=== PATIENT | female | born 1955 | race Caucasian/White ===

== ENCOUNTER → 2017-02-17 | Outpatient (CLI) | payer OTHER ==
[~2017-02-17] MED LIST: BENADRYL50 MG PO; CEPHALEXIN500 M1 PO; FLEXERIL10 MG PO; IBU-4400 MG PO; LEVOTHYROXINE0.05 MG PO; LORTAB 5/500 501 TAB; LORTAB 5/500 501 TAB PO; NO HOME MEDICATIONS; NORCO 325 MG-51 TAB PO; PERCOCET 325 MG1 TA2 PO; PREDNISONE20 MG PO; SYNTHROID0.1 MG/TAB PO; TOPROL XL 50MG50 MG PO; ULTRAM 50MG TAB50 MG PO; ULTRAM50 MG PO; crutches
== END ==
LOC: COL.RAD 12:53
DX: M46.1 Sacroiliitis, not elsewhere classified (principal); Z53.09 Procedure and treatment not carried out because of other contraindication

== ENCOUNTER 2017-02-24 10:06 | Outpatient (RCR) | payer MEDICARE | END 2017-05-25 | disposition home or self-care (01) | LOC: MKS.ESL.PT | DX: M53.3 Sacrococcygeal disorders, not elsewhere classified (principal) | CPT/HCPCS: G8978-GP; G8979-GP ==

== ENCOUNTER → 2017-10-20 | Outpatient (CLI) | payer MEDICARE, OTHER | LOC: COL.LAB 13:41 | DX: Z01.812 Encounter for preprocedural laboratory examination (principal); M16.12 Unilateral primary osteoarthritis, left hip ==

== ENCOUNTER 2018-05-22 17:00 | Inpatient (IN) | payer MEDICARE ==
[~2018-05-22] VITALS: Ht 172.7 cm; Wt 125.2 kg
[~2018-05-22 17:00] MED LIST changes: +BACTRIM DS 8001 TAB PO; +HCTZ 25MG TAB25 MG PO; +INDERAL 10MG10 MG PO; +NAPROSYN500 MG PO; +SYNTHROID0.05 MG/TA PO; +VITAMIND3 5000 PO; +ZYRTEC 10MG10 MG PO
[2018-05-22 18:33] LABS: BASO # 0.1 (0.0-0.2); BASO % 0.4 % (0.0-2.0); EOS # 0.5 (0.0-0.7); EOS % 4.3 % (0-4.0); GRAN # 8.5 (1.4-6.5); GRAN % 73.7 % (42.2-75.2); HEMATOCRIT 39.2 % (37.0-47.0); HEMOGLOBIN 12.1 g/dl (12.5-16.0); LYMPH # 1.2 (1.2-3.4); LYMPH % 10.3 % (20.0-51.0); MEAN CELL VOLUME 92 fl (80.0-100.0); MEAN CORPUSCULAR HEMOGLOBIN 28 pg (27.0-31.0); MEAN CORPUSCULAR HGB CONC 31 g/dl (33.0-37.0); PLATELET COUNT 449 K/mm3 (130-400); RED BLOOD COUNT 4.27 M/mm3 (4.10-5.30); REDCELL DISTRIBUTION WIDTH-CV 14.6 % (11.5-14.5)
[2018-05-22 18:43] LABS: ALBUMIN 3.4 gm/dL (3.5-5.0); BILIRUBIN,TOTAL 0.4 mg/dL (0.0-1.0); CALCIUM 9.1 mg/dL (8.4-10.2); CREATININE, serum 1.16 mg/dL (0.52-1.25); POTASSIUM 4.8 mmol/L (3.4-5.0); TOTAL PROTEIN 7.7 gm/dL (6.4-8.2)
[2018-05-22 18:54] LABS: C-REACTIVE PROTEIN 16.1 mg/dL (0.0-0.9)
[2018-05-22 19:02] LABS: ERYTHROCYTE SEDIMENTATION RATE 115 mm/hr (0-30)
[2018-05-22 22:34] VITALS: BP 126/76; PULSE 81; TEMP 98.2
[2018-05-23] VITALS (12 sets, daily range): BP systolic 107–138; BP diastolic 44–67; PULSE 71–91; TEMP 97–98.5
[2018-05-23 05:55] LABS: HEMOGLOBIN 10.7 g/dl (12.5-16.0); MEAN CELL VOLUME 91 fl (80.0-100.0); MEAN CORPUSCULAR HEMOGLOBIN 28 pg (27.0-31.0); MEAN CORPUSCULAR HGB CONC 31 g/dl (33.0-37.0); MEAN PLATELET VOLUME 9.7 fl (7.4-10.4); PLATELET COUNT 419 K/mm3 (130-400); REDCELL DISTRIBUTION WIDTH-CV 14.6 % (11.5-14.5)
[2018-05-23 05:56] LABS: HEMATOCRIT 34.6 % (37.0-47.0)
[2018-05-23 06:09] LABS: CALCIUM 8.5 mg/dL (8.4-10.2); CREATININE, serum 1.05 mg/dL (0.52-1.25); POTASSIUM 4.3 mmol/L (3.4-5.0)
[2018-05-23 06:28] LABS: BAND 14 % (0-10); BASOPHIL 1 % (0-2); EOSINOPHIL 5 % (0-4); LYMPHOCYTE 23 % (20.0-51.0); NEUTROPHILS 53 % (42.0-75.2)
[2018-05-23 06:30] LABS: ANISOCYTOSIS 1+; PLATELET ESTIMATE INCREASED (NORMAL)
[2018-05-24] VITALS (7 sets, daily range): BP systolic 105–137; BP diastolic 49–62; PULSE 60–75; TEMP 98.1–98.7
[2018-05-24 06:55] LABS: HEMOGLOBIN 10.5 g/dl (12.5-16.0)
[2018-05-24 07:06] LABS: HEMATOCRIT 33.7 % (37.0-47.0)
[2018-05-24 09:44] LABS: HEMOGLOBIN 10.4 g/dl (12.5-16.0); MEAN CELL VOLUME 94 fl (80.0-100.0); MEAN CORPUSCULAR HEMOGLOBIN 29 pg (27.0-31.0); MEAN CORPUSCULAR HGB CONC 31 g/dl (33.0-37.0); PLATELET COUNT 513 K/mm3 (130-400); RED BLOOD COUNT 3.64 M/mm3 (4.10-5.30); REDCELL DISTRIBUTION WIDTH-CV 14.4 % (11.5-14.5)
[2018-05-24 09:45] LABS: HEMATOCRIT 34.1 % (37.0-47.0)
[2018-05-24 09:51] LABS: CALCIUM 8.6 mg/dL (8.4-10.2)
[2018-05-24 10:10] LABS: BAND 25 % (0-10); EOSINOPHIL 1 % (0-4); LYMPHOCYTE 9 % (20.0-51.0); NEUTROPHILS 59 % (42.0-75.2)
[2018-05-24 10:11] LABS: PLATELET ESTIMATE INCREASED (NORMAL)
[2018-05-24 10:13] LABS: HYPOCHROMIA 1+
[2018-05-25] VITALS (11 sets, daily range): BP systolic 116–137; BP diastolic 55–68; PULSE 49–91; TEMP 97.8–98.4
[2018-05-25 06:15] LABS: HEMATOCRIT 41.1 % (37.0-47.0); HEMOGLOBIN 12.4 g/dl (12.5-16.0); MEAN CELL VOLUME 95 fl (80.0-100.0); MEAN CORPUSCULAR HEMOGLOBIN 29 pg (27.0-31.0); MEAN CORPUSCULAR HGB CONC 30 g/dl (33.0-37.0); MEAN PLATELET VOLUME 9.6 fl (7.4-10.4); PLATELET COUNT 499 K/mm3 (130-400); RED BLOOD COUNT 4.33 M/mm3 (4.10-5.30); REDCELL DISTRIBUTION WIDTH-CV 14.4 % (11.5-14.5)
[2018-05-25 06:26] LABS: CALCIUM 8.5 mg/dL (8.4-10.2); CREATININE, serum 0.87 mg/dL (0.52-1.25); POTASSIUM 4.6 mmol/L (3.4-5.0)
[2018-05-25 07:24] LABS: BAND 12 % (0-10); EOSINOPHIL 5 % (0-4); LYMPHOCYTE 37 % (20.0-51.0); NEUTROPHILS 44 % (42.0-75.2); PLATELET ESTIMATE INCREASED (NORMAL)
[2018-05-25 07:25] LABS: HYPOCHROMIA 3+
[2018-05-26] VITALS: BP 139/55; PULSE 71; TEMP 98.8
[2018-05-26 04:00] VITALS: BP 134/57; PULSE 64; TEMP 98.2
[2018-05-26] MEDS ORDERED: ASPIRIN 32325 MG/TA1 PO (06:13)
[2018-05-26] MEDS ORDERED: CELEBREX 200MG200 MG PO (06:13)
[2018-05-26] MEDS ORDERED: ULTRAM 50MG TAB50 MG PO (06:14)
[2018-05-26] MEDS ORDERED: NORCO 325 MG-7.1 TAB PO (06:14)
[2018-05-26 07:21] LABS: HEMATOCRIT 30.8 % (37.0-47.0); HEMOGLOBIN 9.5 g/dl (12.5-16.0)
[2018-05-26 08:29] VITALS: BP 122/43; PULSE 71; TEMP 97.4
[2018-05-26 12:23] VITALS: BP 114/49; PULSE 65; TEMP 98.4
[2018-05-26 16:30] VITALS: BP 114/52; PULSE 62; TEMP 98
[2018-05-26 22:26] VITALS: BP 109/47; PULSE 64; TEMP 98.1
[2018-05-27 00:03] VITALS: BP 115/47; PULSE 64; TEMP 98.4
[2018-05-27 04:24] VITALS: BP 139/56; PULSE 65; TEMP 97.9
[2018-05-27 06:53] LABS: MEAN CELL VOLUME 93 fl (80.0-100.0); MEAN CORPUSCULAR HGB CONC 31 g/dl (33.0-37.0); MEAN PLATELET VOLUME 9.2 fl (7.4-10.4); RED BLOOD COUNT 3.25 M/mm3 (4.10-5.30); REDCELL DISTRIBUTION WIDTH-CV 14.4 % (11.5-14.5)
[2018-05-27 06:55] LABS: HEMATOCRIT 30.1 % (37.0-47.0); HEMOGLOBIN 9.4 g/dl (12.5-16.0); MEAN CORPUSCULAR HEMOGLOBIN 29 pg (27.0-31.0)
[2018-05-27 06:56] LABS: PLATELET COUNT 606 K/mm3 (130-400)
[2018-05-27 07:28] LABS: BAND 5 % (0-10); EOSINOPHIL 6 % (0-4); HYPOCHROMIA 2+; LYMPHOCYTE 23 % (20.0-51.0); NEUTROPHILS 56 % (42.0-75.2); PLATELET ESTIMATE INCREASED (NORMAL)
[2018-05-27 07:29] LABS: STOMATOCYTE 1+
[2018-05-27 08:15] VITALS: BP 112/43; PULSE 82; TEMP 97.6
[2018-05-27] MEDS ORDERED: MAXIPIMEIVSOL IV (09:01)
[2018-05-27] MEDS ORDERED: CUBICIN 500MG500 MG IV (09:01)
[2018-05-27] MEDS ORDERED: CEFTRIAXON2 GM/50 ML IV (11:27)
[2018-05-27 11:47] VITALS: BP 111/58; PULSE 64; TEMP 97.6
[2018-05-27 15:58] VITALS: BP 116/44; PULSE 60; TEMP 97.7
== END 2018-05-27 17:00 | disposition home health service (06) | DRG 580 ==
LOC: COL.ER 17:00 → SURG 19:36 → COL.ER 19:36 → ICU 19:36 → SURG 05-23 08:51 → ICU 05-23 08:51 → SURG 05-23 19:00
PROVIDERS: Emergency Medicine; Hospitalist; Nurse Practitioner; Orthopaedic Surgery; Physician Assistant
PROC: 0QD70ZZ Extraction of Left Upper Femur, Open Approach (ICD-10-PCS; principal; 2018-05-23 07:00)
PROC: 0SPB09Z Removal of Liner from Left Hip Joint, Open Approach (ICD-10-PCS; 2018-05-25)
PROC: 0SUS09Z Supplement Left Hip Joint, Femoral Surface with Liner, Open Approach (ICD-10-PCS; 2018-05-25)
PROC: 0SBB0ZZ Excision of Left Hip Joint, Open Approach (ICD-10-PCS; 2018-05-25 10:30)
DX: L03.116 Cellulitis of left lower limb (principal); T81.32XA Disruption of internal operation (surgical) wound, not elsewhere classified, initial encounter; I96 Gangrene, not elsewhere classified; Z68.41 Body mass index [BMI] 40.0-44.9, adult; M96.840 Postprocedural hematoma of a musculoskeletal structure following a musculoskeletal system procedure; D62 Acute posthemorrhagic anemia; E87.1 Hypo-osmolality and hyponatremia; L76.82 Other postprocedural complications of skin and subcutaneous tissue; I10 Essential (primary) hypertension; G89.29 Other chronic pain; Z87.891 Personal history of nicotine dependence; Z96.642 Presence of left artificial hip joint; B95.1 Streptococcus, group B, as the cause of diseases classified elsewhere; B37.3 Candidiasis of vulva and vagina; E66.01 Morbid (severe) obesity due to excess calories
CPT/HCPCS: 99223-AI; 99233-AI; 99239; A4314; A9284; C1751; C1776; J0330; J0690; J0692; J0696; J0878; J1100; J1644; J1885; J2250; J2405; J2543; J2704; J3010; J7030; J7120

== ENCOUNTER 2018-06-04 13:42 | Outpatient (CLI) | payer MEDICARE ==
[~2018-06-04] VITALS: Ht 172.7 cm; Wt 125.0 kg
[2018-06-04 13:56] VITALS: BP 126/58; PULSE 78; TEMP 98.3
== END 2018-06-04 14:33 | disposition home or self-care (01) ==
LOC: EUO 13:42
DX: Z45.2 Encounter for adjustment and management of vascular access device (principal)

== ENCOUNTER → 2018-06-04 | Emergency (ER) | payer MEDICARE ==
[~2018-06-04] MED LIST changes: +ASPIRIN 32325 MG/TA1 PO; +CEFTRIAXON2 GM/50 ML IV; +CELEBREX 200MG200 MG PO; +CUBICIN 500MG500 MG IV; +MAXIPIMEIVSOL IV; +NORCO 325 MG-7.1 TAB PO
== END ==
LOC: COL.ER 13:16 → EUO 13:17
DX: Z53.9 Procedure and treatment not carried out, unspecified reason (principal)

== ENCOUNTER 2018-06-08 17:03 | Outpatient (RCR) | payer MEDICARE ==
[~2018-06-08] VITALS: Ht 172.7 cm; Wt 126.2 kg
[2018-06-08 19:58] VITALS: BP 113/47; PULSE 70
== END 2018-06-08 19:00 | disposition home or self-care (01) ==
LOC: EUO 17:03
DX: Z45.2 Encounter for adjustment and management of vascular access device (principal); Z95.9 Presence of cardiac and vascular implant and graft, unspecified
CPT/HCPCS: J2997

== ENCOUNTER → 2018-06-19 | Outpatient (CLI) | payer MEDICARE | LOC: ZCOL.LAB 13:47 | DX: R23.8 Other skin changes (principal) ==

== ENCOUNTER 2018-07-17 15:08 | Outpatient (CLI) | payer MEDICARE ==
[~2018-07-17] VITALS: Ht 172.7 cm; Wt 125.9 kg
[2018-07-17 15:36] VITALS: BP 124/49; PULSE 65; TEMP 98.2
== END 2018-07-17 17:00 | disposition home or self-care (01) ==
LOC: EUO 15:08
DX: T84.50XA Infection and inflammatory reaction due to unspecified internal joint prosthesis, initial encounter (principal)

== ENCOUNTER 2019-01-15 20:28 | Inpatient (IN) | payer MEDICARE ==
[~2019-01-15] VITALS: Ht 172.7 cm; Wt 132.4 kg
[2019-01-15 21:38] LABS: HEMATOCRIT 40.7 % (37.0-47.0); HEMOGLOBIN 12.7 g/dl (12.5-16.0); MEAN CELL VOLUME 86 fl (80.0-100.0); MEAN CORPUSCULAR HEMOGLOBIN 27 pg (27.0-31.0); MEAN CORPUSCULAR HGB CONC 31 g/dl (33.0-37.0); MEAN PLATELET VOLUME 10.2 fl (7.4-10.4); PLATELET COUNT 330 K/mm3 (130-400); RED BLOOD COUNT 4.72 M/mm3 (4.10-5.30)
[2019-01-15 21:47] LABS: ALBUMIN 3.9 gm/dL (3.5-5.0); BILIRUBIN,TOTAL 0.7 mg/dL (0.0-1.0); CALCIUM 9.3 mg/dL (8.4-10.2); CREATININE, serum 1.19 (0.52-1.25); POTASSIUM 3.8 mmol/L (3.4-5.0); TOTAL PROTEIN 8.2 gm/dL (6.4-8.2)
[2019-01-15 21:51] LABS: COLLECTION METHOD CLEAN CATCH
[2019-01-15 22:07] LABS: BAND 12 % (0-10); LYMPHOCYTE 11 % (20.0-51.0); NEUTROPHILS 72 % (42.0-75.2); PLATELET ESTIMATE NORMAL (NORMAL)
[2019-01-15 22:19] LABS: MUCOUS Present /lpf; PH 5 (5-8); SQUAMOUS EPITHELIAL 0-2 /hpf; URINE APPEARANCE Cloudy; URINE BACTERIA Rare /hpf; URINE BILIRUBIN Negative (NEGATIVE); URINE BLOOD 1+ (NEGATIVE); URINE COLOR Amber; URINE GLUCOSE Negative (NEGATIVE); URINE KETONE Negative (NEGATIVE); URINE LEUKOCYTE ESTERASE 1+ (NEGATIVE); URINE NITRATE Negative (NEGATIVE); URINE PROTEIN(semi-quant) 2+ (NEGATIVE); URINE UROBILINOGEN >=4.0 mg/dL (NEGATIVE)
[2019-01-15 22:24] LABS: C-REACTIVE PROTEIN 35.4 mg/dL (0.0-0.9)
[2019-01-15 22:31] LABS: ERYTHROCYTE SEDIMENTATION RATE 61 mm/hr (0-30)
--- NOTE | 2019-01-15 23:10 | NUR ---
Pt arrived from ER via stretcher. Pt ambulated from stretcher to bed without difficulty. No distress noted. Family at bedside. Resp even and unlabored. Lungs clear. BS+. L hip red, inflammed and hot to touch. Pt rates pain 4/10. Pain is described as aching that increases with movement. Pedal pulses equal bilaterally. Home medications and history reviewed with patient. Call light within reach. No needs noted.
[2019-01-15] MEDS ORDERED: NAPROSYN500 MG PO (23:40)
[2019-01-15] MEDS ORDERED: TOPROL XL 25MG25 MG PO (23:41)
[2019-01-15] MEDS ORDERED: ULTRAM 50MG TAB50 MG PO (23:43)
[2019-01-15] MEDS ORDERED: VITAMIND3 5000 PO (23:46)
[2019-01-15] MEDS ORDERED: ASPIRIN 81M81 MG/TA2 PO (23:48)
[2019-01-15 23:53] VITALS: BP 110/55; PULSE 94; TEMP 98.3
[2019-01-16] VITALS (7 sets, daily range): BP systolic 100–131; BP diastolic 36–56; PULSE 73–107; TEMP 98–98.9
--- NOTE | 2019-01-16 | NUR ---
Pt resting with HOB elevated. Food brought to patient. Gneesis METALLURGIST PROCESS at bedside.
--- NOTE | 2019-01-16 05:40 | NUR ---
Lab at bedside drawing blood for AM labs. No distress noted. Pts VSS this AM. Pt has been afebrile throughout the night but is c/o chills thia morning. No needs noted.
--- NOTE | 2019-01-16 06:00 | NUR ---
Consult called to Dr. Land for IV Abx. No orders received.
[2019-01-16 06:18] LABS: CALCIUM 8.6 mg/dL (8.4-10.2); CREATININE, serum 0.92 (0.52-1.25); HEMATOCRIT 38.4 % (37.0-47.0); HEMOGLOBIN 11.9 g/dl (12.5-16.0); MEAN CELL VOLUME 87 fl (80.0-100.0); MEAN CORPUSCULAR HEMOGLOBIN 27 pg (27.0-31.0); MEAN CORPUSCULAR HGB CONC 31 g/dl (33.0-37.0); MEAN PLATELET VOLUME 10.4 fl (7.4-10.4); PLATELET COUNT 298 K/mm3 (130-400); POTASSIUM 3.4 mmol/L (3.4-5.0); RED BLOOD COUNT 4.41 M/mm3 (4.10-5.30); REDCELL DISTRIBUTION WIDTH-CV 13.9 % (11.5-14.5)
--- NOTE | 2019-01-16 07:00 | NUR ---
Report received from Irineo Peralta. PT in bed resting, requesting bath wipes to do hygeine, will provide and continue to monitor.
--- NOTE | 2019-01-16 07:45 | NUR ---
Assessment charted. Pt c/o pain at 6/10 to L hip that is not releived with current pain regimen, will address with doctor during rounds. L hip is warm, red, and hardened, pt able to ambulate on it with a limping gait. Pt is alert and oriented, IVF to LW. Ordering breakfast, deneis needs, will continue to monitor.
--- NOTE | 2019-01-16 09:35 | NUR ---
ALEJANDRA met with the patient to discuss a discharge plan. The patient lives in [place] with her , Jordon. The patient reports independence with ADLs and reports using a cane daily. The patient used [facility] last year with assistance with a PICC line. The patient's PCP is Cherie Sheehan, Nurse Practitioner and the patient also sees Dr. Thiago Warner at the [facility] in [place]. The patient receives her medications at [facility] in [place]. The patient reports that she turned in advanced directives in the past but there are none scanned into the EMR. She does have them completed. At this time the patient plans to return home with Jordon upon discharge. ALEJANDRA will continue to follow.
--- NOTE | 2019-01-16 11:37 | NUR ---
Provided spiritul care, listened too, and prayed with the patient.
[2019-01-16 11:53] LABS: BAND 2 % (0-10); LYMPHOCYTE 12 % (20.0-51.0); NEUTROPHILS 83 % (42.0-75.2); PLATELET ESTIMATE NORMAL (NORMAL)
--- NOTE | 2019-01-16 12:01 | NUR ---
Talked with Dr. Land regarding pt and answered questions
--- NOTE | 2019-01-16 22:22 | NUR ---
AT THE BEGINNING OF THE SHIFT PT REPORTED HER SHORTS BEING DAMP. PT SHOWED HER MOSTLY HEALED LEFT HIP INCISION WHICH HAD A LARGE SCABBED AREA AT THE PROXIMAL END OF SAID INCISION. PT MOVED HER UPPER BODY AND BLOODY DRAINAGE SHOT OUT OF THE SCABBED AREA. PT STOOD UP AND THEN DRAINAGE STEADILY SHOT OUT OF HER HIP FOR APPROX. 10 MINUTES. GUESSING THAT 300-400 mL CAME OUT OF THE WOUND. GAUZE AND ABD APPLIED WITH A SPICA WRAP TO LEFT HIP.
[2019-01-17 04:47] VITALS: BP 126/58; PULSE 78; TEMP 98
[2019-01-17 06:02] LABS: CALCIUM 9.1 mg/dL (8.4-10.2); CREATININE, serum 0.89 (0.52-1.25); POTASSIUM 3.6 mmol/L (3.4-5.0)
[2019-01-17 06:05] LABS: HEMATOCRIT 36.3 % (37.0-47.0); HEMOGLOBIN 10.9 g/dl (12.5-16.0); MEAN CELL VOLUME 89 fl (80.0-100.0); MEAN CORPUSCULAR HEMOGLOBIN 27 pg (27.0-31.0); MEAN CORPUSCULAR HGB CONC 30 g/dl (33.0-37.0); MEAN PLATELET VOLUME 10.2 fl (7.4-10.4); PLATELET COUNT 363 K/mm3 (130-400); REDCELL DISTRIBUTION WIDTH-CV 14.1 % (11.5-14.5)
--- NOTE | 2019-01-17 06:13 | NUR ---
PT IN BED. LEFT HIP DRESSING CHANGED 4 TIMES DURING THE NIGHT. TRAMADOL FOR PAIN.
--- NOTE | 2019-01-17 07:16 | NUR ---
REPORT RECEIVED FROM VIVIEN NEWTON. PT SITTING ON THE SIDE OF BED AND WAITING FOR BREAKFAST. PT'S LEFT HIP DRESSING SOAKED WITH BLOOD AGAIN. UNWRAPPED THE DRESSING AND BLOODY DRAINAGE DRIPPING OUT OF THE GOLF BALL SIZE BLOOD CLOT, WHICH POKING OUT OF THE WOUND SITE. NEW DRESSING APPLIED AND PT RESTING IN BED. CALL LIGHT IN REACH.
--- NOTE | 2019-01-17 08:22 | NUR ---
Pt finished breakfast in bed and c/o 4/10 pain around L hip dressing site. No bldy drainage observed. Pt alert and oriented. Call light in reach.
[2019-01-17 08:49] VITALS: BP 114/59; PULSE 83; TEMP 97.7
--- NOTE | 2019-01-17 11:52 | NUR ---
Pt c/o pain around L hip and asked for pain med. Call light in reach. New ice bag applied.
[2019-01-17 12:27] LABS: BAND 12 % (0-10); EOSINOPHIL 3 % (0-4); LYMPHOCYTE 44 % (20.0-51.0); NEUTROPHILS 35 % (42.0-75.2); PLATELET ESTIMATE INCREASED (NORMAL)
[2019-01-17 12:35] VITALS: BP 95/50; PULSE 71; TEMP 97.8
--- NOTE | 2019-01-17 12:55 | NUR ---
PT'S VISITING IN . PT DENIED DIZZYNESS OR SHORTNESS OF BREATH. PT ALERT AND ORIENTED. PT REMINDED OF HYDRATING HERSELF WITH WATER AND NOTED. PT REPORTS HER BP TENDS TO RUN LOW WHEN SHE'S IN HOSPITAL WHEN ASKED HER AVERAGE BP. CALL LIGHT IN REACH.
--- NOTE | 2019-01-17 15:00 | NUR ---
PT RESTING IN CHAIR AND DENIED PAIN. CALL LIGHT IN REACH.
[2019-01-17 15:29] VITALS: BP 94/67; PULSE 74; TEMP 98.1
--- NOTE | 2019-01-17 17:44 | NUR ---
PT C/O PAIN AROUND L HIP AND ASKED FOR PAIN MED. CALL LIGHT IN REACH.
--- NOTE | 2019-01-17 18:14 | NUR ---
PT RESTING IN THE BED AND STATES PAIN "GOT BETTER." CALL LIGHT IN REACH.
--- NOTE | 2019-01-17 19:25 | NUR ---
Pt up to chair. No distress noted. Pt denies pain at this time. Respirations even and unlabored. Lungs clear. BS+. Pt denies nausea. Dressing to L hip clean, dry and intact-wrapped with yousuf wrap. Edema noted to L hip. Pedal pulses equal bilaterally- 2+. Pt is ambulatory and voiding clear yellow urine. Will assess wound/prior incision site at next dressing change.
[2019-01-17 20:02] VITALS: BP 99/45; PULSE 73; TEMP 98.7
--- NOTE | 2019-01-17 23:00 | NUR ---
Pt bleeding through dressing. Clothing and pad changed. Dressing changed. Large hematoma noted at old incision site. Covered with 4x4 guaze, ABD pads and wrapped with yousuf wrap. Well tolerated by patient. Will continue to monitor.
[2019-01-17 23:59] VITALS: BP 107/59; PULSE 78; TEMP 98.1
[2019-01-18] VITALS (12 sets, daily range): BP systolic 106–131; BP diastolic 49–65; PULSE 70–92; TEMP 97.6–98.5
--- NOTE | 2019-01-18 | NUR ---
Camila Mcdonald PUNCH FINISHER called about putting schuedled Heparin on hold due to patient actively bleeding and hematoma formation at L hip incision site. Pts Hgb/Hct have been treding downward since admission. Orders received to Hold Heparin tongiht and reassess in AM. 0000 dose of Heparin not given.
--- NOTE | 2019-01-18 03:15 | NUR ---
Sangenous drainage is starting to sweep through patient yousuf wrap to L hip. Dressing changed. A greater amount of the hematoma is hanging out of the incision site now. New 4x4 guaze, ABD pads and yousuf wraps applied. Well tolerated by patient.
--- NOTE | 2019-01-18 05:35 | NUR ---
Dr. Dockery at bedside.
--- NOTE | 2019-01-18 06:00 | NUR ---
Pt resting with HOB elevated this AM. Dressing to L hip clean dry and intact at this time. Pt reports pain 5/10 in L hip that is throbbing and intermittent. Pain increases with movement. PRN pain medication given. Pt reports understanding of plan for I&D this afternoon. Pt has been NPO after midnight just in case Dr. Dockery proceeded with a procedure today. No needs noted at this time. Will continue to monitor.
[2019-01-18 07:29] LABS: BASO # 0.1 (0.0-0.2); BASO % 0.8 % (0.0-2.0); EOS # 0.9 (0.0-0.7); EOS % 9.3 % (0-4.0); GRAN # 5.9 (1.4-6.5); GRAN % 60.1 % (42.2-75.2); HEMOGLOBIN 10.1 g/dl (12.5-16.0); LYMPH # 1.8 (1.2-3.4); LYMPH % 18.5 % (20.0-51.0); MEAN CELL VOLUME 88 fl (80.0-100.0); MEAN CORPUSCULAR HEMOGLOBIN 27 pg (27.0-31.0); MEAN CORPUSCULAR HGB CONC 31 g/dl (33.0-37.0); MEAN PLATELET VOLUME 10.4 fl (7.4-10.4); MONO % 9.9 % (1.7-9.3); PLATELET COUNT 399 K/mm3 (130-400); RED BLOOD COUNT 3.77 M/mm3 (4.10-5.30); REDCELL DISTRIBUTION WIDTH-CV 14.1 % (11.5-14.5)
[2019-01-18 07:31] LABS: HEMATOCRIT 33.1 % (37.0-47.0)
[2019-01-18 07:41] LABS: CALCIUM 8.9 mg/dL (8.4-10.2); CREATININE, serum 0.84 (0.52-1.25); POTASSIUM 3.6 mmol/L (3.4-5.0)
--- NOTE | 2019-01-18 08:00 | NUR ---
PATIENT IS AMBULATING INDEPENDENTLY WITHIN HER ROOM. PATIENT IS A&OX4. VSS. SEE MORNING ASSESSMENT. BOWEL SOUNDS ACTIVE ALL FOUR QUADRANTS. PATIENT IS NPO FOR PROCEDURE. PATIENT DENIES NAUSEA OR VOMITING. POSITIVE PEDAL PULSES EQUAL BILATERALLY. 1+ PITTING EDEMA TO BLE. 2+ PITTING EDEMA TO FEET BILATERALLY. LEFT HIP DRESSING SATURATED WITH BLOOD AND URINE. SEE DRESSING CHANGE NURSES NOTE. CALL LIGHT WITHIN REACH. FAMILY PRESENT AT THE BEDSIDE. PATIENT DENIES ANY NEEDS AT THIS TIME.
--- NOTE | 2019-01-18 09:30 | NUR ---
PATIENT'S LEFT HIP DRESSING CHANGED. LARGE CLOT THE SIZE OF THIS NURSES HAND REMOVED WITH GAUZE DURING DRESSING CHANGE. DRESSING REPLACED WITH GAUZE, ABD PADS AND HYPAFIX.
--- NOTE | 2019-01-18 11:03 | NUR ---
PATIENT CONSENT FORM FOR SURGERY SIGNED AND ON PATIENT CHART.
--- NOTE | 2019-01-18 12:20 | NUR ---
PATIENT TAKEN TO PERIOP VIA BED. WILL WAIT FOR PATIENT ARRIVAL BACK TO ROOM 346.
--- NOTE | 2019-01-18 14:30 | NUR ---
PATIENT TOLERATING SIPS AND CHIPS ALONG WITH CLEAR LIQUIDS. PATIENT DENIES ANY COMPLAINTS OF N/V. DIET ADVANCED TO ADA. LEFT HIP DRESSING IS CD&I. CMS INTACT. CAP REFILL <3 SECONDS. POST-OP VSS. PATIENT GIVEN 2 TABLET OF PRN TRAMADOL. SRIVASTAVA CATHETER DRAINAGE CLEAR YELLOW URINE. WILL CONTINUE TO MONITOR.
--- NOTE | 2019-01-18 18:15 | NUR ---
POST-OP VITALS STABLE AND COMPLETE. PATIENT TOLERATING ADA DIET WITHOUT COMPLAINTS OF N/V.
--- NOTE | 2019-01-18 18:49 | NUR ---
REPORT GIVEN TO VIVIEN MARIN.
--- NOTE | 2019-01-18 21:31 | NUR ---
Patient resting well in bed. Asleep when this nurse entered the room. Easily awakens. Denies pain at this time. Foam tape covering site to left hip. García draining clear, yellow urine. SCDs and JOHNIE hose on. Denies any further needs.
--- NOTE | 2019-01-19 01:55 | NUR ---
Patient is resting well with eyes closed and call light in reach at this time.
[2019-01-19 04:00] VITALS: BP 118/51; PULSE 71; TEMP 98
--- NOTE | 2019-01-19 05:29 | NUR ---
Patient resting in bed with call light in reach and TV on. Patient states she has been up since about 0400 thinking of questions for the doctor. States pain medication helped. Ice applied to left hip. Denies further needs.
[2019-01-19 06:16] LABS: HEMATOCRIT 33.6 % (37.0-47.0); HEMOGLOBIN 10.3 g/dl (12.5-16.0)
--- NOTE | 2019-01-19 06:57 | NUR ---
Report given to VIVIEN Perera.
[2019-01-19 07:11] VITALS: BP 91/65; PULSE 67; TEMP 98.1
--- NOTE | 2019-01-19 08:00 | NUR ---
PATIENT SITTING UP AT THE EDGE OF THE BED THIS MORNING. PATIENT A&OX4. BLOOD PRESSURE LOW, OTHERWISE VSS. POSITIVE PEDAL PULSES EQUAL BILATERALLY. NON-PITTING EDEMA TO BLE. CAP REFILL <3 SECONDS. CMS INTACT. JOHNIE HOSE TO BLE. AQUACEL TO LEFT HIP WITH SMALL AMOUNT OF BLOODY DRAINAGE PRESENT ON QUACEL DRESSING. SRIVASTAVA CATHETER TO DEPENDENT DRAINAGE WITH SMALL [place] OF [place]EL[place]OW URINE WITH MUCOUS PRESENT IN SRIVASTAVA BAG. SEE MORNING ASSESSMENT. PATIENT REPORTING PAIN AN 5/10 ON A 0-10 SCALE. PATIENT GIVEN 2 TABLETS OF PRN TRAMADOL. BREAKFAST TRAY PRESENT AT THE BEDSIDE. CALL LIGHT WITHIN REACH. PATIENT DENIES ANY OTHER NEEDS AT THIS TIME.
--- NOTE | 2019-01-19 08:20 | NUR ---
PATIENT'S SRIVASTAVA CATHETER DISCONTINUED PER ORDERS. 10 MLS OF SALINE ASPIRATED FROM BALLOON. BALLOON TIP INTACT. PATIENT TOLERATED WELL. WILL CONTINUE TO MONITOR.
--- NOTE | 2019-01-19 10:15 | NUR ---
Follow-up visit; Patient stated she is doing well and thanked Master Dyer for looking in on her.
[2019-01-19 12:20] VITALS: BP 129/65; PULSE 77; TEMP 97.9
--- NOTE | 2019-01-19 12:20 | NUR ---
PATIENT'S LEFT WRIST INT DC'D DUE TO PICC LINE PLACEMENT. TIP INTACT. PATIENT TOLERATED WELL.
--- NOTE | 2019-01-19 13:33 | NUR ---
ALEJANDRA informed that patient will need to D/C with IV antibiotics. ALEJANDRA met with patient about this. Patient reports she has used [facility] for IV antibiotics in the past and would like to use them this time as well. Patient signed choice form. Patient also reported she [facility] health [facility] for teaching and PICC line care. SW faxed referral to both [facility] and [facility] .
[2019-01-19 15:38] VITALS: BP 115/59; PULSE 76; TEMP 97.5
--- NOTE | 2019-01-19 18:58 | NUR ---
REPORT GIVEN TO VIVIEN CONTE.
[2019-01-19 19:59] VITALS: BP 121/54; PULSE 73; TEMP 98.3
--- NOTE | 2019-01-19 20:30 | NUR ---
HS meds along with norco 2 tabs for pain reviewed and given. Takes snack of pudding and grahams this HS . Alert and oriented x 4. New ice pack applied to left hip. Raisa has shadowing of drainage not quite to sides but will monitor and encouraged patient to notify nurse if drainage noted outside of dressing. Jaya hose removed and SCD's on. Patient does ankle pumps.
[2019-01-19 23:38] VITALS: BP 121/46; PULSE 75; TEMP 97.9
--- NOTE | 2019-01-20 02:15 | NUR ---
Patient resting quietly in bed until now. Awake and up to the bathroom. Voids and has bm. Sits up in recliner and nurse reapplied andres hose. [place] 2 tabs given for left hip pain along with new ice bag.
[2019-01-20 04:04] VITALS: BP 123/56; PULSE 62; TEMP 97.9
--- NOTE | 2019-01-20 05:14 | NUR ---
SITS UP IN RECLINER. REPORTS PAIN TOLERABLE FOLLOWING TRAMADOL 5/10.
[2019-01-20 06:28] LABS: HEMATOCRIT 33.4 % (37.0-47.0)
--- NOTE | 2019-01-20 07:00 | NUR ---
Pt AAOx4 up to recliner, states she has home health appointments at 12:00PM today and needs to be discharged by 11:30AM to get home in time. Aquacell dressing saturated with dark red/brown semi-coagulated blood that dripped onto floor when dressing changed - estimated 10mL of blood dripped onto floor. Sutures intact, skin cleaned with sterile guaze, skin without redness.
[2019-01-20 08:28] VITALS: BP 111/49; PULSE 72; TEMP 97.7
[2019-01-20] MEDS ORDERED: MAXIPIME2 GM IV (09:37)
[2019-01-20] MEDS ORDERED: ASPIRIN 32325 MG/TA1 PO (09:37)
[2019-01-20] MEDS ORDERED: NORCO 325 MG-7.1 TAB PO (09:39)
--- NOTE | 2019-01-20 11:47 | NUR ---
ALEJANDRA attended clinical rounds. Patient will discharge home today with [facility] for IV antibiotics teaching and PICC line care. ALEJANDRA faxed discharge orders to both [facility] and [facility]. ALEJANDRA presented IM to patient. She signed but did not request a copy.
== END 2019-01-20 11:15 | disposition home or self-care (01) | DRG 501 ==
LOC: COL.ER 20:28 → SURG 22:52
PROVIDERS: Emergency Medicine; Family Medicine; Nurse Practitioner; Orthopaedic Surgery; Physician Assistant; ADMIT Family Medicine
PROC: 0JDM0ZZ Extraction of Left Upper Leg Subcutaneous Tissue and Fascia, Open Approach (ICD-10-PCS; principal; 2019-01-18 13:15)
PROC: 02HV33Z Insertion of Infusion Device into Superior Vena Cava, Percutaneous Approach (ICD-10-PCS; 2019-01-19)
DX: T84.52XA Infection and inflammatory reaction due to internal left hip prosthesis, initial encounter (principal); N39.0 Urinary tract infection, site not specified; T81.30XA Disruption of wound, unspecified, initial encounter; Z68.42 Body mass index [BMI] 45.0-49.9, adult; L03.115 Cellulitis of right lower limb; I10 Essential (primary) hypertension; E03.9 Hypothyroidism, unspecified; I87.8 Other specified disorders of veins; I49.9 Cardiac arrhythmia, unspecified; Z96.642 Presence of left artificial hip joint; Y83.9 Surgical procedure, unspecified as the cause of abnormal reaction of the patient, or of later complication, without mention of misadventure at the time of the procedure; B96.20 Unspecified Escherichia coli [E. coli] as the cause of diseases classified elsewhere; D64.9 Anemia, unspecified; E66.01 Morbid (severe) obesity due to excess calories; G43.909 Migraine, unspecified, not intractable, without status migrainosus; G89.29 Other chronic pain; Z90.710 Acquired absence of both cervix and uterus; Z79.82 Long term (current) use of aspirin; Z88.6 Allergy status to analgesic agent; Z88.9 Allergy status to unspecified drugs, medicaments and biological substances; Z88.1 Allergy status to other antibiotic agents; Z87.891 Personal history of nicotine dependence
CPT/HCPCS: 99232-AI; 99239; A4314; A9284; C1751; J0692; J0696; J1100; J1170; J1644; J2405; J2704; J3010; J7030; J7120; Q9967

== ENCOUNTER → 2019-02-23 | Outpatient (CLI) | payer MEDICARE ==
[~2019-02-23] MED LIST changes: +ASPIRIN 81M81 MG/TA2 PO; +MAXIPIME2 GM IV; +TOPROL XL 25MG25 MG PO
== END ==
LOC: COL.LAB 12:20
DX: Z01.812 Encounter for preprocedural laboratory examination (principal); T84.52XA Infection and inflammatory reaction due to internal left hip prosthesis, initial encounter

== ENCOUNTER 2019-03-13 14:10 | Emergency (ER) | payer MEDICARE ==
[~2019-03-13] VITALS: Ht 172.7 cm; Wt 122.7 kg
[~2019-03-13 14:10] MED LIST changes: +FOLIC ACID 40400 MCG PO; +IRON 27 MG PO; +LOPRESSOR 225 MG/TAB PO; +LOTRISONE 0.05%1 CRE TOP; +ROCEPHIN 2GM VIAL21 IJ; +SYNTHROID 0.0.025 MG PO; -SYNTHROID0.05 MG/TA PO; -TOPROL XL 25MG25 MG PO
[2019-03-13 14:17] VITALS: TEMP 98.4
[2019-03-13 15:22] LABS: BASO # 0.1 (0.0-0.2); BASO % 0.8 % (0.0-2.0); EOS # 0.6 (0.0-0.7); EOS % 7.7 % (0-4.0); GRAN # 4.8 (1.4-6.5); GRAN % 60.8 % (42.2-75.2); LYMPH # 1.6 (1.2-3.4); LYMPH % 20.4 % (20.0-51.0); MEAN CELL VOLUME 88 fl (80.0-100.0); MEAN CORPUSCULAR HGB CONC 30 g/dl (33.0-37.0); MEAN PLATELET VOLUME 9.2 fl (7.4-10.4); MONO # 0.8 (0.1-0.6); MONO % 9.8 % (1.7-9.3); PLATELET COUNT 465 K/mm3 (130-400); RED BLOOD COUNT 3.04 M/mm3 (4.10-5.30); REDCELL DISTRIBUTION WIDTH-CV 14.5 % (11.5-14.5)
[2019-03-13 15:23] LABS: HEMOGLOBIN 7.9 g/dl (12.5-16.0); MEAN CORPUSCULAR HEMOGLOBIN 26 pg (27.0-31.0)
[2019-03-13 15:24] LABS: HEMATOCRIT 26.8 % (37.0-47.0)
[2019-03-13 15:33] LABS: ALBUMIN 3.1 gm/dL (3.5-5.0); BILIRUBIN,TOTAL 0.2 mg/dL (0.0-1.0); CALCIUM 8.8 mg/dL (8.4-10.2); CREATININE, serum 0.62 (0.52-1.25); TOTAL PROTEIN 6.7 gm/dL (6.4-8.2)
[2019-03-13 15:45] LABS: C-REACTIVE PROTEIN 12.5 mg/dL (0.0-0.9)
[2019-03-13] MEDS ORDERED: FENTANYL 25 MCG TD (16:40)
[2019-03-13] MEDS ORDERED: PERCOCET 325 MG1 TA2 PO (17:50)
[2019-03-13 18:33] VITALS: BP 130/73; PULSE 85
== END 2019-03-13 17:53 | disposition home or self-care (01) ==
LOC: COL.ER 14:10
PROVIDERS: Nurse Practitioner
DX: S72.302A Unspecified fracture of shaft of left femur, initial encounter for closed fracture (principal); E03.9 Hypothyroidism, unspecified; Z79.82 Long term (current) use of aspirin; Z87.891 Personal history of nicotine dependence; X50.1XXA Overexertion from prolonged static or awkward postures, initial encounter
CPT/HCPCS: J1170

== ENCOUNTER → 2019-03-22 | Outpatient (REF) ==
[~2019-03-22] MED LIST changes: +FENTANYL 25 MCG TD
== END ==
LOC: ZCOL.LAB 18:57
DX: Z01.89 Encounter for other specified special examinations (principal)

== ENCOUNTER → 2019-03-22 | Outpatient (REF) ==
[2019-03-22 06:45] LABS: BASO # 0.1 (0.0-0.2); BASO % 0.8 % (0.0-2.0); EOS # 0.5 (0.0-0.7); EOS % 6.1 % (0-4.0); GRAN # 4.5 (1.4-6.5); LYMPH # 1.5 (1.2-3.4); LYMPH % 20.3 % (20.0-51.0); MEAN CELL VOLUME 87 fl (80.0-100.0); MEAN CORPUSCULAR HGB CONC 29 g/dl (33.0-37.0); MEAN PLATELET VOLUME 9.5 fl (7.4-10.4); MONO % 13.3 % (1.7-9.3); PLATELET COUNT 629 K/mm3 (130-400); RED BLOOD COUNT 3.26 M/mm3 (4.10-5.30); REDCELL DISTRIBUTION WIDTH-CV 14.4 % (11.5-14.5)
[2019-03-22 06:51] LABS: HEMATOCRIT 28.2 % (37.0-47.0); HEMOGLOBIN 8.3 g/dl (12.5-16.0); MEAN CORPUSCULAR HEMOGLOBIN 25 pg (27.0-31.0)
[2019-03-22 07:06] LABS: CALCIUM 9.6 mg/dL (8.4-10.2); CREATININE, serum 0.66 (0.52-1.25)
== END ==
LOC: ZCOL.LAB 06:41
PROVIDERS: Internal Medicine
DX: T84.52XD Infection and inflammatory reaction due to internal left hip prosthesis, subsequent encounter (principal); I10 Essential (primary) hypertension

== ENCOUNTER → 2019-03-24 | Outpatient (REF) | LOC: ZCOL.LAB 09:03 | DX: T84.52XD Infection and inflammatory reaction due to internal left hip prosthesis, subsequent encounter (principal) ==

== ENCOUNTER 2019-03-30 10:16 | Outpatient (CLI) | payer MEDICARE ==
[2019-03-30 10:44] VITALS: BP 92/57; PULSE 92; TEMP 98.6
--- NOTE | 2019-03-30 11:00 | NUR ---
patient in the express unit. Patient has been receiving cares at [facility]. PICC intact right upper arm. Flushed both ports with 50 mL normal saline without difficulty with no blood return noted. Had patient cough during flushing of PICC line and no blood return noted. Chest x-ray done to confirm PICC tip location. PICC tip noted in lower SVC. Contacted Dr. See for Cathflo order. Express unit staff informed of plan.
--- NOTE | 2019-03-30 12:55 | NUR ---
Blood return noted from red and purple ports. 5 mL blood removed from each port to get cathflo out of lines and lines flushed with NS.
[2019-03-30 13:14] LABS: MEAN CELL VOLUME 85 fl (80.0-100.0); MEAN CORPUSCULAR HGB CONC 29 g/dl (33.0-37.0); PLATELET COUNT 450 K/mm3 (130-400); REDCELL DISTRIBUTION WIDTH-CV 16.1 % (11.5-14.5)
[2019-03-30 13:21] LABS: HEMOGLOBIN 7.9 g/dl (12.5-16.0); MEAN CORPUSCULAR HEMOGLOBIN 25 pg (27.0-31.0)
[2019-03-30 13:22] LABS: HEMATOCRIT 27.1 % (37.0-47.0)
[2019-03-30 13:26] LABS: ALBUMIN 3.2 gm/dL (3.5-5.0); BILIRUBIN,TOTAL 0.2 mg/dL (0.0-1.0); C-REACTIVE PROTEIN 7.7 mg/dL (0.0-0.9); CALCIUM 9.1 mg/dL (8.4-10.2); CREATININE, serum 0.69 (0.52-1.25); POTASSIUM 4.1 mmol/L (3.4-5.0)
[2019-03-30 13:34] LABS: ERYTHROCYTE SEDIMENTATION RATE 98 mm/hr (0-30)
[2019-03-30 13:43] LABS: BAND 3 % (0-10); BASOPHIL 1 % (0-2); EOSINOPHIL 10 % (0-4); LYMPHOCYTE 24 % (20.0-51.0); NEUTROPHILS 52 % (42.0-75.2); PLATELET ESTIMATE INCREASED (NORMAL)
[2019-03-30 13:44] LABS: ANISOCYTOSIS 1+; OVALOCYTES 1+; POLYCHROMASIA 1+
[2019-03-30] MEDS ORDERED: TYLENOL SU650 MG/SUP RC (15:42)
[2019-03-30] MEDS ORDERED: DULCOLAX S10 MG/SUPP RC (15:43)
[2019-03-30] MEDS ORDERED: FLEXERIL 1010 MG/TAB PO (15:44)
[2019-03-30] MEDS ORDERED: LASIX 40MG TABL40 MG PO (15:45)
[2019-03-30] MEDS ORDERED: MIRALAX PA17 GM/Dose PO (15:46)
[2019-03-30] MEDS ORDERED: ROXICODONE15 MG PO (15:47)
[2019-03-30] MEDS ORDERED: ROCEPHIN 2GM VIAL21 IV (15:49)
== END 2019-03-30 16:20 | disposition home or self-care (01) ==
LOC: EUO 10:16
PROVIDERS: Internal Medicine
DX: Z45.2 Encounter for adjustment and management of vascular access device (principal); T84.52XD Infection and inflammatory reaction due to internal left hip prosthesis, subsequent encounter
CPT/HCPCS: J2997

== ENCOUNTER 2019-04-22 13:48 | Inpatient (IN) | payer MEDICARE ==
[~2019-04-22] VITALS: Ht 172.7 cm; Wt 96.0 kg
[~2019-04-22 13:48] MED LIST changes: +DULCOLAX S10 MG/SUPP RC; +FLEXERIL 1010 MG/TAB PO; +LASIX 40MG TABL40 MG PO; +MIRALAX PA17 GM/Dose PO; +ROCEPHIN 2GM VIAL21 IV; +ROXICODONE15 MG PO; +TYLENOL SU650 MG/SUP RC
[2019-04-26] VITALS (8 sets, daily range): BP systolic 111–125; BP diastolic 49–61; PULSE 83–99; TEMP 65–98.7
[2019-04-26 10:07] LABS: MEAN CELL VOLUME 79 fl (80.0-100.0); MEAN CORPUSCULAR HGB CONC 29 g/dl (33.0-37.0); MEAN PLATELET VOLUME 8.9 fl (7.4-10.4); PLATELET COUNT 471 K/mm3 (130-400); RED BLOOD COUNT 4.32 M/mm3 (4.10-5.30); REDCELL DISTRIBUTION WIDTH-CV 15.9 % (11.5-14.5)
[2019-04-26 10:08] LABS: HEMATOCRIT 34.1 % (37.0-47.0); HEMOGLOBIN 9.8 g/dl (12.5-16.0); MEAN CORPUSCULAR HEMOGLOBIN 23 pg (27.0-31.0)
--- NOTE | 2019-04-26 15:53 | NUR ---
SW met with the pt's and pt's daughter to discuss a discharge plan. The pt was not in the room; was out for a procedure. The pt has been at [facility] for a retirement stay since March 05 and pt intends on returning to [facility]. The pt has a cane she uses when she goes out into the community and was independent with ADLs before the retirement stay. The pt's PCP is Cherie raymond nurse practicioner at [facility] in [place] and pt receives medications from [facility] in [facility] with no difficulties. The pt does not have advanced directives in the EMR but pt's reports they do have them completed. SW will continue to follow and assist with any discharge recommendations.
--- NOTE | 2019-04-26 16:19 | NUR ---
PT TO ROOM 327 PER BED WITH REPORT FROM ARTUR PUGA PACU @ 1600.
--- NOTE | 2019-04-26 18:51 | NUR ---
REPORT TO ADRIANO PUGA.
--- NOTE | 2019-04-26 20:00 | NUR ---
PATIENT IS A&O. VSS. C/O PAIN RATED AT 6/10 IN LLE. GAVE PRN NORCO, TWO TABS. LTH DRESSING IS CD&I WITH OCCLUSIVE DRESSING. SCD'S TO BLE. NO TEDS DUE TO SIZE OF BLE. NOTED +2 BLE EDEMA. POSITIVE +1 PEDAL PULSES. WBAT WITH ASSIST. NO C/O N/V. IV FLUIDS INFUSING INTO RIGHT UPPER ARM PICC LINE. SRIVASTAVA TO DEPENDENT DRAINAGE WITH MOD AMOUNTS OF CLEAR YELLOW URINE NOTED. PATIENT WANTING TO LET PAIN MEDS KICK IN BEFORE GOING FOR HER FIRST POST OP WALK. PATIENT RESTING UP IN BED. PM MEDS GIVEN. CALL LIGHT IN REACH.
--- NOTE | 2019-04-26 21:00 | NUR ---
PATIENT AMBULATED TO HALLWAY AND BACK TO BEDSIDE RECLINER. GAIT SLOW AND STEADY. PATIENT STATES "I'M SO HAPPY" WITH TEARS IN HER EYES SHE WALKED. SHE REPORTS SHE HASN'T BEEN ABLE TO WALK PRIOR TO SURGERY. PATIENT REPORTS SHE SLEEPS IN A RECLINER AT HOME AND WANTS TO SIT IN CHAIR FOR A WHILE.
[2019-04-27 00:07] VITALS: BP 108/46; PULSE 86; TEMP 98
[2019-04-27 04:35] VITALS: BP 110/55; PULSE 72; TEMP 97.6
[2019-04-27] MEDS ORDERED: NORCO 325 MG-7.1 TAB PO (06:32)
[2019-04-27] MEDS ORDERED: ULTRAM 50MG TAB50 MG PO (06:33)
[2019-04-27] MEDS ORDERED: DYNACIN100 M1 PO (06:34)
--- NOTE | 2019-04-27 06:55 | NUR ---
awake and up in recliner, bedside shift report received from VIVIEN Baez, c/o pain and medicated with hydrocodone 7.5mg 2 tabs
[2019-04-27 07:15] LABS: HEMATOCRIT 31.6 % (37.0-47.0); HEMOGLOBIN 9.4 g/dl (12.5-16.0)
[2019-04-27 08:12] VITALS: BP 109/41; PULSE 66; TEMP 97.8
--- NOTE | 2019-04-27 08:20 | NUR ---
has ordered breakfast, full assessment completed, see interventions for further info, denies needs at this time
--- NOTE | 2019-04-27 08:45 | NUR ---
PICC intact right upper arm. With sterile technique right upper arm PICC dressing change done with insertion site cleansed with ChloraPrep 1, chlorhexidine impregnated disc applied, skin prep, StatLock, and Tegaderm applied. Patient reported that ChloraPrep was not being used to cleanse insertion site at senior care. Patient reports she is allergic to ChloraPrep. Patient reported that the senior care was using Betadine to cleanse site. At this time, we will use ChloraPrep to cleanse insertion site. I allowed the ChloraPrep to dry. No signs or symptoms of IV complications noted. No other concerns voiced. We will continue to monitor. PICC caps have been changed but no documentation found.
--- NOTE | 2019-04-27 09:27 | NUR ---
physical therapy in to work with patient
--- NOTE | 2019-04-27 09:48 | NUR ---
ALEJANDRA presented the patient choice form. The pt's first and only choice is [facility]. ALEJANDRA will continue to follow.
--- NOTE | 2019-04-27 09:53 | NUR ---
[facility] ALEJANDRA will continue to follow.
--- NOTE | 2019-04-27 10:38 | NUR ---
resting in chair, denies needs
--- NOTE | 2019-04-27 11:06 | NUR ---
c/o pain to left hip, medicated with hydrocodone 7.5mg 2 tabs
[2019-04-27 12:33] VITALS: BP 105/53; PULSE 81; TEMP 98.4
--- NOTE | 2019-04-27 12:40 | NUR ---
remains sitting up in chair without c/os
--- NOTE | 2019-04-27 13:37 | NUR ---
ambulating in [place] with physical therapy, c/o sore area to right buttock, has stage I pressure ulcer, encouraged to reposition self as she can and mepiplex dressing placed
[2019-04-27 15:26] VITALS: BP 124/47; PULSE 76; TEMP 98.5
--- NOTE | 2019-04-27 17:11 | NUR ---
remains up in chair, visiting with family, denies needs
--- NOTE | 2019-04-27 17:47 | NUR ---
remains up in chair, alvarez catheter discontinued, medicated with scheduled toradol
--- NOTE | 2019-04-27 18:35 | NUR ---
bedside shift report given to VIVIEN Valentin
--- NOTE | 2019-04-27 20:00 | NUR ---
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 Assessment complete. VS stable. C/O pain to left hip/thigh-[place] [address] order. Sitting up in recliner-states "I sleep in recliner at home as well." Pillow under heels. Fresh ice pack given and applied to hip/upper thigh. Bulky white dressing/foam tape to left hip-C/D/I. Denies nausea/+flatus. PICC to right upper arm flushes without difficulty. Due to void as alvarez was removed at approx 1800. Encouraged to increase PO intake and call when she feels the urge. Call light in reach. WIll monitor.
--- NOTE | 2019-04-27 21:00 | NUR ---
Noted to have SCDs and JOHNIE hose off. When asked stated JOHNIE hose cut off circulation. Refusing them now. When asked about SCDs-tried to apply-refused. Teaching done on purpose and verbalizes understanding but still refusing. Will monitor.
[2019-04-27 21:19] VITALS: BP 102/43; PULSE 72; TEMP 98
[2019-04-28] VITALS (7 sets, daily range): BP systolic 101–144; BP diastolic 46–71; PULSE 62–76; TEMP 97.8–98.3
--- NOTE | 2019-04-28 | NUR ---
Still resting in recliner. Toradol 15mg given IV per dr order. Denies pain at this time. Will monitor.
--- NOTE | 2019-04-28 03:30 | NUR ---
Up to bathroom-voided without difficulty. C/O pain to left hip/thigh. [place] [address] order. Fresh ice pack applied to left hip/thigh. Requesting Levothyroxine to be given now, as this is the time she takes it at home. Call light in reach-sleeping in recliner. Will monitor.
--- NOTE | 2019-04-28 06:05 | NUR ---
Dressing changed at this time PA. Henry Mccullough applied.
[2019-04-28 06:47] LABS: HEMATOCRIT 29.6 % (37.0-47.0); HEMOGLOBIN 8.6 g/dl (12.5-16.0)
--- NOTE | 2019-04-28 06:54 | NUR ---
awake and up in recliner, bedside shift report received from VIVIEN Valentin
--- NOTE | 2019-04-28 06:55 | NUR ---
Report to VIVIEN Boyce
--- NOTE | 2019-04-28 08:00 | NUR ---
had breakfast and tolerated well, full assessment completed, see interventions for further info, c/o pain to left hip and medicated with hydrocodone 7.5mg 2 tabs, occupational therapy in to assist her with taking a shower
--- NOTE | 2019-04-28 08:53 | NUR ---
refused shower earlier, physical therapy now in to work with patient
--- NOTE | 2019-04-28 09:37 | NUR ---
occupational therapy in and assisting her with taking a shower
--- NOTE | 2019-04-28 10:15 | NUR ---
out of shower, mepiplex dressing to left buttock removed, area only has minimal redness, new mepiplex placed
--- NOTE | 2019-04-28 11:00 | NUR ---
sitting up in chair looking at phone
--- NOTE | 2019-04-28 12:00 | NUR ---
asisted up to bathroom and then back to bed, c/o pain to left hip and medicated with hydrocodone 7.5mg 2 tabs and also in anticipation of therapy
--- NOTE | 2019-04-28 14:16 | NUR ---
resting in chair visiting with her grandson
--- NOTE | 2019-04-28 17:10 | NUR ---
had supper and tolerated well, c/o pain to left hip and medicated with hydrocodone 7.5mg 2 tabs
--- NOTE | 2019-04-28 19:01 | NUR ---
bedside shift report given to VIVIEN Whitt
--- NOTE | 2019-04-28 20:00 | NUR ---
Report received, assumed care for night warehouse selector. Assessment complete. VS stable. Sitting up in chair watching TV. Denies nausea, shortness of breath or pain needing an intervention. Verbalizes she is exhausted and woke her up every couple hours last night. Discussed plan of care to consolidate RN care and LIFE COACH care to limit times she is bothered. Aquacell dressing to left hip-C/D/I. Fresh ice pack applied. Denies any questions or concerns. Call light in reach. Will monitor.
--- NOTE | 2019-04-28 21:30 | NUR ---
Resting in recliner-eyes closed-audible snoring. HS meds due-will administer at 2330 per request as CUSHION SPRING ASSEMBLER will be doing rounds as well.
--- NOTE | 2019-04-28 23:30 | NUR ---
HS meds given per request. C/O pain to left hip/thigh rating 8/10-described as sharp/throbbiing pain. Neversink given per dr hernandez. Will monitor effectiveness.
--- NOTE | 2019-04-29 03:58 | NUR ---
Rested well this shift. Combined care to minimize sleep interruptions. Requesting Synthroid dose now. Given. Rating pain 3/10 to left hip/thigh. Denies need for medication. Fresh ice pack applied. Aquacell dressing remains C/D/I. Has slept in recliner this shift as well. Denies needs. Call light in reach. Will monitor.
[2019-04-29 04:00] VITALS: BP 105/49; PULSE 71; TEMP 97.9
--- NOTE | 2019-04-29 06:58 | NUR ---
Report given to VIVIEN Estrada
[2019-04-29 08:06] VITALS: BP 131/68; PULSE 81; TEMP 97.9
--- NOTE | 2019-04-29 11:30 | NUR ---
First visit from the comprehensive ophthalmologist. No needs right now.
[2019-04-29 11:42] VITALS: BP 137/61; PULSE 75; TEMP 98.4
--- NOTE | 2019-04-29 12:31 | NUR ---
Patient will discharge to [facility] for skilled. ALEJANDRA met with patient to review IM. Patient verbalized understanding, signed and did not want a copy. SW faxed updates and discharge orders to [facility]. Radha from [facility] reports that as soon as she get approval from insurance, she will inform ALEJANDRA.
--- NOTE | 2019-04-29 16:19 | NUR ---
ALEJANDRA spoke with Kuldip from [facility]. Patient insurance has not has not yet approved a skilled stay. ALEJANDRA also spoke with Starr from insurance about why skilled is necessary. SW waiting for insurance approval.
[2019-04-29 16:39] VITALS: BP 125/72; PULSE 80; TEMP 97.8
--- NOTE | 2019-04-29 16:43 | NUR ---
Insurance company is extending acute stay 1 more day and will confirm if they will cover skilled care on 04/30/19. Janeth notified of the above information.
[2019-04-29 19:09] VITALS: BP 138/55; PULSE 71; TEMP 98.3
[2019-04-29 23:49] VITALS: BP 127/46; PULSE 67; TEMP 97.8
--- NOTE | 2019-04-30 04:03 | NUR ---
Patient sleeps in recliner. Patient states frustration with insurance company, but is glad she is able to stay tonight. States she can't get into her house and that there is construction in front of her home. Dressing to left hip clean, dry, and intact. PRN pain medication given throughout the night. Pain well controlled with current regimen. Will continue to monitor.
[2019-04-30 04:45] VITALS: BP 108/42; PULSE 70; TEMP 97.9
--- NOTE | 2019-04-30 07:49 | NUR ---
ASSUMED PT CARE AT THIS TIME. PT SITTING UP IN RECLINER ORDERING BREAKFAST. INSURANCE ISSUES PREVENTING PT FROM TRANSFERING TO [facility]/
[2019-04-30 08:40] VITALS: BP 136/59; PULSE 80; TEMP 98.2
[2019-04-30 12:40] VITALS: BP 105/60; PULSE 84; TEMP 98.2
--- NOTE | 2019-04-30 13:04 | NUR ---
REPORT CALLED TO JEAN PU[facility].
== END 2019-04-30 13:49 | DRG 468 ==
LOC: JCC 04-26 07:30
PROVIDERS: Nurse Anesthetist, Certified Registered; Physician Assistant; ADMIT Orthopaedic Surgery
PROC: 0SPB08Z Removal of Spacer from Left Hip Joint, Open Approach (ICD-10-PCS; 2019-04-26)
PROC: 0SRB02A Replacement of Left Hip Joint with Metal on Polyethylene Synthetic Substitute, Uncemented, Open Approach (ICD-10-PCS; principal; 2019-04-26 07:30)
DX: Z47.32 Aftercare following explantation of hip joint prosthesis (principal); M19.90 Unspecified osteoarthritis, unspecified site; J45.909 Unspecified asthma, uncomplicated; G43.909 Migraine, unspecified, not intractable, without status migrainosus; Z87.891 Personal history of nicotine dependence; G89.29 Other chronic pain; D64.9 Anemia, unspecified; E03.9 Hypothyroidism, unspecified; G47.33 Obstructive sleep apnea (adult) (pediatric)
CPT/HCPCS: A4216; A4314; A9284; C1713; C1776; J0690; J1100; J1170; J1885; J2250; J2405; J2704; J3010; J7030; J7121; P9016

== ENCOUNTER 2019-10-05 21:59 | Emergency (ER) | payer MEDICARE ==
[~2019-10-05] VITALS: Ht 172.7 cm; Wt 130.5 kg
[~2019-10-05 21:59] MED LIST changes: +DYNACIN100 M1 PO
[2019-10-05 23:27] LABS: HEMATOCRIT 39.9 % (37.0-47.0); HEMOGLOBIN 12.5 g/dl (12.5-16.0); MEAN CELL VOLUME 84 fl (80.0-100.0); MEAN CORPUSCULAR HEMOGLOBIN 26 pg (27.0-31.0); MEAN CORPUSCULAR HGB CONC 31 g/dl (33.0-37.0); MEAN PLATELET VOLUME 10.9 fl (7.4-10.4); PLATELET COUNT 220 K/mm3 (130-400); RED BLOOD COUNT 4.75 M/mm3 (4.10-5.30); REDCELL DISTRIBUTION WIDTH-CV 14.7 % (11.5-14.5)
[2019-10-05 23:37] LABS: COLLECTION METHOD CLEAN CATCH
[2019-10-05 23:38] LABS: ALBUMIN 3.5 gm/dL (3.5-5.0); CALCIUM 8.6 mg/dL (8.4-10.2); CREATININE, serum 1.31 (0.52-1.25)
[2019-10-05 23:49] LABS: MUCOUS Present /lpf; PH 5 (5-8); SQUAMOUS EPITHELIAL None Seen /hpf; URINE APPEARANCE Hazy; URINE BACTERIA None Seen /hpf; URINE BILIRUBIN Negative (NEGATIVE); URINE BLOOD 2+ (NEGATIVE); URINE COLOR Yellow; URINE GLUCOSE Negative (NEGATIVE); URINE KETONE Negative (NEGATIVE); URINE LEUKOCYTE ESTERASE Negative (NEGATIVE); URINE NITRATE Negative (NEGATIVE); URINE PROTEIN(semi-quant) 1+ (NEGATIVE); URINE RBC 0-2 /hpf; URINE UROBILINOGEN >=4.0 mg/dL (NEGATIVE)
[2019-10-06 00:06] LABS: BAND 13 % (0-10); LYMPHOCYTE 7 % (20.0-51.0); NEUTROPHILS 75 % (42.0-75.2); PLATELET ESTIMATE NORMAL (NORMAL)
[2019-10-06 00:28] LABS: C-REACTIVE PROTEIN 33.5 mg/dL (0.0-0.9)
[2019-10-06] MEDS ORDERED: TOPROL XL 25MG25 MG PO (03:31)
[2019-10-06] MEDS ORDERED: HCTZ 25MG TAB25 MG PO (03:31)
[2019-10-06] MEDS ORDERED: ASPIRIN 81M81 MG/TA2 PO (03:32)
[2019-10-06] MEDS ORDERED: LYRICA 75MG CAP75 MG PO (03:32)
[2019-10-06 06:27] VITALS: TEMP 98.8
[2019-10-06 10:35] VITALS: BP 106/59; PULSE 69
== END 2019-10-06 10:58 | disposition short-term general hospital (02) ==
LOC: COL.ER 21:59 → MEDICAL 10-06 03:12 → COL.ER 10-06 03:12
PROVIDERS: Family Medicine
DX: L08.9 Local infection of the skin and subcutaneous tissue, unspecified (principal); I10 Essential (primary) hypertension; E03.9 Hypothyroidism, unspecified; E66.9 Obesity, unspecified; Z90.89 Acquired absence of other organs; Z90.710 Acquired absence of both cervix and uterus; Z96.642 Presence of left artificial hip joint; Z79.82 Long term (current) use of aspirin
CPT/HCPCS: A4216; J0690; J0696; J3010; J7030; Q9967

== ENCOUNTER 2020-03-29 21:18 | Emergency (ER) | payer MEDICARE ==
[~2020-03-29] VITALS: Ht 172.7 cm; Wt 130.0 kg
[~2020-03-29 21:18] MED LIST changes: +LYRICA 75MG CAP75 MG PO; +TOPROL XL 25MG25 MG PO
[2020-03-29 21:25] VITALS: TEMP 99.9
[2020-03-29 22:43] VITALS: BP 121/70; PULSE 82
== END 2020-03-29 22:53 | disposition home or self-care (01) ==
LOC: COL.ER 21:18
DX: T84.52XA Infection and inflammatory reaction due to internal left hip prosthesis, initial encounter (principal); T82.898A Other specified complication of vascular prosthetic devices, implants and grafts, initial encounter; I10 Essential (primary) hypertension; Z79.82 Long term (current) use of aspirin; Z88.6 Allergy status to analgesic agent